=== PATIENT | female | born 1950 | race Caucasian/White ===

== ENCOUNTER → 2016-11-10 | Outpatient (CLI) | payer OTHER ==
--- NOTE | ~2016-11-10 | PUL ---
PATIENT'S NAME: JOVITA GILLIS [facility] AGE: 66 Y [address] ROOM: [place] [id number] LOCATION: [facility] ADMIT DATE: 11/10/2016 Pulmonary DISCHARGE DATE: FAMILY PHYSICIAN: Paula Mak APRN ATTENDING PHYSICIAN: Paula Mak NAME OF PROCEDURE: Home sleep test DATE OF PROCEDURE: 11/10/16 TECH: RICK Trejo SUMMARY: Patient underwent home sleep testing using a type III device and was studied for 7 hours 20 minutes. In that time there were 5 apneas and 60 hypopneas for an apnea/hypopnea index mildly elevated at 8.9 events per hour. Oxygen saturations ranged from 76%-88%. Saturations were below 88% for essentially the entire night. Heart rate ranged from 70-100 beats per minute. IMPRESSION: Mild obstructive sleep apnea with significant non apneic hypoxemia. PLAN: Patient will receive results from the ordering provider. MD JUAN MIGUEL TELLES/ /[id number] dtt: 11/27/16 1017 , Jae Munguia dtd: 11/13/16 1035
== END | disposition disaster alternative care site (69) ==
LOC: GSLP 11-02 08:21
DX: G47.00 Insomnia, unspecified (principal); G47.33 Obstructive sleep apnea (adult) (pediatric); R06.02 Shortness of breath; R53.83 Other fatigue
CPT/HCPCS: G0399